=== PATIENT | female | born 1970 | race African-American/Black ===

== ENCOUNTER 2022-11-09 09:59 | Emergency (ER) | payer MEDICAID ==
[~2022-11-09] VITALS: Ht 157.5 cm; Wt 68.0 kg
[2022-11-09] MEDS ORDERED: SODIUM CHLORIDE 0.9% 1,000 ML IV ONE ×2 (10:45→19:15)
[2022-11-09] MEDS ORDERED: ZIPRASIDONE MESYLATE 20MG/VIAL IM ONE (10:45)
[2022-11-09 11:14] LABS: *AMPHETAMINES SCREEN URINE NEGATIVE (NEGATIVE); *BARBITURATES SCREEN URINE NEGATIVE (NEGATIVE); *BENZODIAZEPINES SCREEN URINE NEGATIVE (NEGATIVE); *COCAINE SCREEN URINE NEGATIVE (NEGATIVE); CANNABINOID URINE SCREEN NEGATIVE (NEGATIVE); METHADONE URINE SCREEN NEGATIVE (NEGATIVE); OPIATES URINE SCREEN NEGATIVE (NEGATIVE); PHENCYCLIDINE URINE SCREEN NEGATIVE (NEGATIVE)
[2022-11-09 11:46] LABS: CLARITY URINE CLEAR (CLEAR); COLOR URINE YELLOW (YELLOW); KETONES URINE NEGATIVE (NEGATIVE); LEUKOCYTE ESTERASE URINE NEGATIVE (NEGATIVE); NITRITE URINE NEGATIVE (NEGATIVE); OCCULT BLOOD URINE NEGATIVE (NEGATIVE); PH URINE 6.5 (4.5-8.0); PROTEIN URINE NEGATIVE (NEGATIVE); SPECIFIC GRAVITY URINE 1.003 (1.005-1.030); UROBILINOGEN URINE 0.2 E.U./dL (0.2-1.0)
[2022-11-09 13:03] LABS: CHLORIDE 102 mEq/L (98-107)
[2022-11-09 13:04] LABS: BASOPHILS % 0.6 % (0.0-2.0); EOSINOPHILS % 0.3 % (0.0-5.0); HEMATOCRIT. 38.1 % (36.0-48.0); HEMOGLOBIN. 12.9 g/dL (12.0-16.0); LYMPHOCYTES % 35.4 % (20.0-50.0); MEAN CORPUSCULAR VOLUME 94.1 fL (81.0-99.0); MEAN PLATELET VOLUME 7.3 fl (7.4-10.4); MONOCYTES % 8.1 % (2.0-8.0); NEUTROPHILS % 55.6 % (40.0-76.0); PLATELET 227 x1000/uL (130-400); RED BLOOD CELL COUNT 4.04 mill/uL (4.2-5.4); RED CELL DISTRIBUTION WIDTH 13.5 % (11.6-14.6)
[2022-11-09 13:10] LABS: BETA HYDROXYBUTYRATE 0.2 mMol/L (0.0-0.3); ETHANOL BLOOD < 10 mg/dL (-10)
[2022-11-09] MEDS ORDERED: LORAZEPAM 2MG/ML CPJ IV ONE ×3 (14:45→22:00)
[2022-11-09] MEDS ORDERED: CHLORDIAZEPOXIDE 25MG CAPSULE PO ONE (14:45)
[2022-11-09] MEDS ORDERED: CHLORDIAZEPOXIDE 25MG CAPSULE PO NR (15:00)
[2022-11-09 17:49] LABS: CHLORIDE 108 mEq/L (98-107)
[2022-11-09 17:57] LABS: ETHANOL BLOOD < 10 mg/dL (-10)
[2022-11-09] MEDS: CHLORDIAZEPOXIDE 25MG CAPSULE PO SCH (22:40)
[2022-11-10] MEDS ORDERED: ACETAMINOPHEN 325MG TABLET PO ONE (06:00)
[2022-11-10] MEDS: CHLORDIAZEPOXIDE 25MG CAPSULE PO SCH (06:02)
[2022-11-10] MEDS ORDERED: LORAZEPAM 2MG/ML CPJ IV ONE ×2 (06:30→08:15)
[2022-11-10] MEDS ORDERED: HALOPERIDOL LACTATE 5MG/ML VIAL IM ONE (09:45)
[2022-11-10] MEDS ORDERED: LORAZEPAM 2MG/ML CPJ IM ONE (09:45)
[2022-11-10 11:06] LABS: CHLORIDE 107 mEq/L (98-107)
[2022-11-10 11:14] LABS: ETHANOL BLOOD < 10 mg/dL (-10)
[2022-11-10] MEDS ORDERED: LORAZEPAM 1MG TABLET PO ONE (23:45)
[2022-11-11] MEDS ORDERED: CHLORDIAZEPOXIDE 25MG CAPSULE PO ONE ×2 (07:00→09:30)
[2022-11-11] MEDS ORDERED: HYDRALAZINE HCL 50MG TABLET PO ONE (11:15)
[2022-11-11] MEDS ORDERED: LORAZEPAM 1MG TABLET PO ONE (11:45)
[2022-11-11 13:19] VITALS: BP 136/98
== END 2022-11-11 13:21 | disposition hospice, inpatient (51) ==
LOC: ER 09:59
DX: R45.851 Suicidal ideations (principal); Z20.822 Contact with and (suspected) exposure to COVID-19; Z86.59 Personal history of other mental and behavioral disorders
CPT/HCPCS: 36415; 80048; 80053; 80305; 80307; 80320; 80329; 81003; 81025; 82010; 83930; 85025; 87426; 96361; 96372; 96374; 96376; 99285; C9803; J1630; J2060; J3486; J7030; Z7610; G0480